=== PATIENT | male | born 1995 | race African-American/Black ===

== ENCOUNTER 2020-07-01 11:47 | Emergency (ER) | payer SELFPAY ==
[~2020-07-01] VITALS: Ht 172.7 cm; Wt 81.0 kg
[2020-07-01] MEDS ORDERED: IBUPROFEN 800MG TABLET PO ONE (12:15)
[2020-07-01 12:58] VITALS: BP 98/58
== END 2020-07-01 13:51 | disposition home or self-care (01) ==
LOC: ER 11:47
DX: S09.8XXA Other specified injuries of head, initial encounter (principal); R07.9 Chest pain, unspecified; M79.641 Pain in right hand; M79.642 Pain in left hand; Y08.89XA Assault by other specified means, initial encounter; Y93.89 Activity, other specified; Y92.9 Unspecified place or not applicable
CPT/HCPCS: 71045; 73130; 99284